=== PATIENT | female | born 1985 | race Caucasian/White ===

== ENCOUNTER → 2016-10-07 | Outpatient (CLI) | payer OTHER | LOC: HPND 07:47 | PROVIDERS: ATTEND Obstetrics & Gynecology | DX: O09.292 Supervision of pregnancy with other poor reproductive or obstetric history, second trimester (principal); O35.1XX0 Maternal care for (suspected) chromosomal abnormality in fetus, not applicable or unspecified; Z84.81 Family history of carrier of genetic disease | CPT/HCPCS: 76816 ==